=== PATIENT | male | born 2000 | race African-American/Black ===

== ENCOUNTER 2018-12-30 07:59 | Emergency (ER) | payer OTHER ==
[2018-12-30] MEDS ORDERED: Ondansetron ODT 4 MG TAB ONE (08:12)
[2018-12-30] MEDS ORDERED: Acetaminophen 500 MG TAB ONE (08:12)
[2018-12-30] MEDS ORDERED: Azithromycin 250 MG TAB ONE (09:15)
== END 2018-12-30 09:26 | disposition home or self-care (01) ==
LOC: NAV ERS 07:59
DX: J02.9 Acute pharyngitis, unspecified (principal); R19.7 Diarrhea, unspecified; R11.2 Nausea with vomiting, unspecified; F90.9 Attention-deficit hyperactivity disorder, unspecified type
CPT/HCPCS: 87081; 87430; 99283; Q0162

== ENCOUNTER 2019-06-04 15:58 | Emergency (ER) | payer OTHER | END 2019-06-04 17:00 | disposition home or self-care (01) | LOC: NAV ERS 15:58 | DX: R46.89 Other symptoms and signs involving appearance and behavior (principal); R40.20 Unspecified coma | CPT/HCPCS: 99284 ==